=== PATIENT | female | born 1965 | race Caucasian/White ===

== ENCOUNTER 2025-09-03 08:31 | Inpatient (IN) | payer OTHER, SELFPAY ==
--- NOTE | 2025-09-03 08:30 | RT.EKG_ITS ---
APPROVED REPORT Exam: Resting ECG Reason for Exam: SOB/ Fall Patient Location: E HR:72 bpm ECG Measurements Heart Rate 72 AXIS MA 140 P 79 QRSd 72 QRS 76 QT 402 T 69 QTc 441 Conclusion Sinus rhythm...normal P axis, V-rate 60- 99 No Occlusion PA
[2025-09-03 08:37] VITALS: BP 121/77; PULSE 71; RESP 16; O2SAT 95
--- NOTE | 2025-09-03 08:45 | W.ED.GENAD ---
Discharge Plan Disposition Patient Disposition: Admit to [facility] Discharge Details Clinical Impression: Pneumothorax on left Admit Date/Time: 09/03/25 12:23 Admit Provider: Yenifer Guerrero Attending Provider: Yenifer Guerrero Primary Care Provider: None,None ED Provider: Romeo Hampton [facility] General Date/Time Provider Initiated Documentation: 09/03/25 08:45. HPI Narrative: MDM Primary survey intact. Reassuring shock index. On secondary survey patient has left upper thoracic and left lateral back pain concerning for rib fracture versus contusion. Given shortness of breath with slightly decreased left-sided breath sounds we will proceed to CT chest without contrast to assess for occult pneumo and to increase sensitivity for rib fractures. Given minor mechanism of injury and duration of time since injury with reassuring vital signs not suspicious for aortic injury nor significant vascular injury so do not feel the patient required IV contrast for vessel imaging. Soft nontender abdomen with no rebound nor guarding and no nausea nor vomiting but as a result I did not feel patient required an abdominal CT scan. No midline cervical spinal tenderness and good range of motion in neck so we will defer neck CT. No loss of consciousness nor blood thinners based on age less than [address] head. Right forearm with superficial volar ecchymosis. Given ability to pronate and supinate I am not suspicious for any acute osseous abnormalities so we will defer radiographs. [place] Head CT Criteria Major Criteria GCS < 15 : [No] Open or depressed skull Fx: [No] Sign of Basilar Skull Fx: [No] > 2 Episodes Vomiting: [No] Anticoagulation: [No] Age > 65: [No] Minor Criteria Retrograde Amnesia >30min: [No] Dangerous Mechanism: [No] Per [place] head CT rules, CT head not obtained. The patient had a GCS of 15, no open/depressed skull fracture, no signs of basilar skull fracture (hemotympanum, raccoon eyes, yañez's sign, CSF Nakina/Rhinorrhea), no vomiting, and is less than 65 years of age. 4:15 PM Late charting due to patient care. On CT patient was found to have a large closed left pneumothorax with no associated rib fractures. I placed patient on nonrebreather at [address] Guerrero graciously agreed to accept the patient for hospitalization. She placed a left-sided pigtail. I performed procedural sedation. Please see procedure note for details. Patient remained hemodynamically stable in the emergency department. Diagnostic interpretations performed by me: Per my independent interpretation EKG shows: Narrow complex normal sinus rhythm at a rate of 72. Normal axis. Intervals within normal limits. No ST segment abnormalities. T wave inversion in aVL. No prior for comparison. HPI The patient presents for evaluation of a fall. The patient experienced a fall last night, descending 5 to 6 steps on a back stairway in her home. The stairway consists of approximately 8 steps leading up from the kitchen, with a landing in the opposite direction. She was able to get up right away. She did not lose consciousness. She is not on any blood thinners. She did not notice any bleeding. Exam General: Well-appearing in no acute distress speaking in complete sentences. Head: Normocephalic, atraumatic. Eye:[Pupils equal, round reactive to light.] Extraocular eye movements intact. No conjunctival injection. No scleral icterus. Ear, nose, mouth, throat: Grossly normal inspection. Normal voice, handling secretions normally. No hemotympanum bilaterally. Neck: Trachea midline. Cardiovascular: Well-perfused distal extremities. Respiratory: Nonlabored respiration. Gastrointestinal: Nondistended abdomen. Musculoskeletal: No edema. Moving all 4 extremities spontaneously. Skin: Normal for age and race, grossly normal temperature and turgor. No acute rash. Neurologic: Alert and appropriate, no apparent acute deficits. Psychiatric: Mood and manner are appropriate. Grooming and personal hygiene are appropriate. Related Data Home Medications ?Medication ?Instructions ?Recorded ?Confirmed Unknown [No Known Home Meds] 09/03/25 09/03/25 Allergies Allergy/AdvReac Type Severity Reaction Status Date / Time morphine AdvReac Mild Other (See Verified 09/03/25 10:42 Comment) Penicillins AdvReac Unknown Unknown Verified 09/03/25 10:42 General Stated Complaint: Fall/Non TraumaCriteria CHRISTIAN: 3 Course Vital Signs Vital signs: Vital Signs Pulse 71 09/03/25 08:37 Respiratory Rate 16 09/03/25 08:37 Blood Pressure 121/77 09/03/25 08:37 Pulse Oximetry 95 09/03/25 08:37 Pulse 71 09/03/25 08:37 Respiratory Rate 16 09/03/25 08:37 Blood Pressure 121/77 09/03/25 08:37 Pulse Oximetry 95 09/03/25 08:37 Procedure Procedural Sedation Date of Procedure: 09/03/25 Time of procedure: 11:01 Provider that performed the procedure: Romeo Hampton Indication: Procedural optimization Patient Consented: Written Standard Time Out Performed: Yes Sedation Given: Propofol Amount of sedation(mg): 60 Preparation: phototypesetting equipment monitor applied, pulse oximeter, capnometry used, supplemental O2 applied, suction/airway equipment at bedside and IV secured Note: Patient tolerated procedure well. Please see separate procedure note by proceduralist. PFSH All Active Problems (Updated 09/03/25 @ 10:06 by Romeo Hampton MD) Pneumothorax on left (Acute) Social History Smoking/Tobacco Use Status: Current every day Tobacco Type: e-cigarettes Smoking risk assessment performed?: Yes Alcohol Intake: current Alcohol Intake frequency: a few times a month Drug use: Never Housing: house Do you feel safe at home: Yes Do you feel safe in your relationship?: Yes
[2025-09-03 08:48] VITALS: TEMP 36.9
--- NOTE | 2025-09-03 09:00 | DI.CT_ITS ---
Exam(s) CT CHEST WO EXAM: CT CHEST WO CLINICAL HISTORY: Left-sided chest wall pain, shortness of breath. TECHNIQUE: Multi planar reconstructions were performed. CONTRAST MATERIAL: None COMPARISON: No exams were available for comparison FINDINGS: CHEST: LUNGS: There is a E prominent left-sided pneumothorax, approximately 60 percent. No overlying rib fractures evident. No obvious incidental lesions in left lung seen. The opposite-right lung is clear and there is no pneumothorax on the right side. There is some flattening of the left hemidiaphragm. No shift of midline structures. There are no pleural effusions on either side. No significant focal findings in trachea and mainstem bronchi. MEDIASTINUM: There is no obvious hilar nor mediastinal adenopathy. Visualized thyroid unremarkable.No obvious axillary adenopathy OTHER: There are bilateral saline breast implants. CARDIAC: Heart size is normal. There is no pericardial effusion.Caliber of the thoracic aorta is within normal limits. VISUALIZED UPPER ABDOMEN:Gallbladder surgically absent. 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 No ascites. Spleen appears unremarkable. No obvious organ lacerations in the partially visualized upper abdomen. OSSEOUS: No significant osseous lesions.. IMPRESSION: 1. Prominent unilateral left-sided pneumothorax as described above. No pleural fluid. 2. There is some flattening of the left hemidiaphragm. There is no significant shift of midline structures. 3. Bilateral saline appearing breast implants noted. Findings called by myself to ER physician 09/03/2025 at 9:45 a.m. RADIATION DOSE DELIVERED: 145.12mGy.cm Total DLP DATA REPOSITORY: All CT scans at this facility are submitted to the National Radiology Data Registry (NRDR) Dose Index Registry (DIR) with the [employer] (A[employer]). RADIATION OPTIMIZATION: All CT scans at this facility use at least one of these dose optimization techniques: automated exposure control; mA and/or kV adjustment per patient size (includes targeted exams where dose is matched to clinical indication); or iterative reconstruction.
[2025-09-03 10:32] LABS: Abs Immature Grans 0.02 10^3/uL (0.0-0.06); HCT 37.2 % (36.0-46.0); HGB 12.0 g/dL (11.2-15.7); Immature Grans % 0.3 %; MCH 27.5 pg (27.0-33.0); MCHC 32.3 % (32.0-36.0); MCV 85 fL (80-95); MPV 9.7 fL (8.0-11.0); Platelet Count 251 10^3/uL (130-400); RBC 4.36 10^6/uL (3.93-5.22); RDW 13.5 % (11.7-14.6); RDW-SD 42.1 fL; WBC 7.21 10^3/uL (4.4-10.8)
[2025-09-03] MEDS: Ketorolac 15 MG/ML VIAL IVP (10:43)
[2025-09-03] MEDS: ACETAMINOPHEN 500 MG/50 ML BAG 200 MG IVPB (10:43)
[2025-09-03 10:56] LABS: Anion Gap 9 mmol/L (3-11); BUN 11 mg/dL (9-23); CO2 27.0 mmol/L (20.0-31.0); Calcium 8.7 mg/dL (8.3-10.6); Chloride 107 mmol/L (98-107); Glucose 107 mg/dL (74-106); Potassium 4.1 mmol/L (3.5-5.1); Sodium 143 mmol/L (136-145)
[2025-09-03] MEDS: Normal Saline 500 ML IV (11:08)
[2025-09-03] MEDS: Propofol 200 MG/20 ML VIAL 60 MG IVP (11:08)
--- NOTE | 2025-09-03 11:15 | DI.RAD_ITS ---
Exam(s) XR PORTABLE CHEST AP EXAM: XR PORTABLE CHEST AP CLINICAL HISTORY: Status post chest tube. TECHNIQUE: 2D digital imaging was performed. COMPARISON: Chest CT scan earlier same day was reviewed FINDINGS: Single AP portable view. There has been interval placement of a left pigtail thoracotomy catheter and there has been significant re-expansion of the left lung and less flattening of the left hemidiaphragm. There is a tiny remaining apical pneumothorax. No infiltrates on either side. No shift of midline structures. No fractures evident. Heart size normal. The mediastinum is not widened IMPRESSION: Significant re-expansion of the left lung since placement of the pigtail drainage catheter in the left pleural space. DATA REPOSITORY: RADIATION DOSE DELIVERED:
--- NOTE | 2025-09-03 11:34 | RESPIRATORY ---
Paged to ED to assist with conscious sedation. Patient placed on EtCO2 NC at 5L. Pre-sedation vital signs HR 64, RR 16, EtCO2 32, SpO2 100%. Ambu bag, suction, nasal/oral airway at bedside. Airway cart and Glidescope on standby. Pt tolerated procedure well with post-sedation vitals HR 62, RR 12, EtCO2 32, SpO2 100% on RA.
[2025-09-03] MEDS: HYDROmorphone 2 MG/ML SYR 0.25 MG IVP ×2 (11:35→22:01)
[2025-09-03] MEDS: Lidocaine 2% Multi-Dose W/EPI 1/100,000 20 ML VIAL IJ (11:37)
[2025-09-03] MEDS: HYDROmorphone 2 MG/ML SYR 0.5 MG IVP (11:51)
--- NOTE | 2025-09-03 11:54 | NUR.NOTE ---
Nursing Note: necklace placed in coin pocket of wallet per pt
--- NOTE | 2025-09-03 12:34 | HPE_ITS ---
Date of service: 09/03/25 Time of Service: 12:34 Assessment and Plan Assessment and plan (1) Pneumothorax on left: Status: Acute Assessment and plan: Patient is a 60-year-old female who presented to the ED after a fall with ongoing left-sided pain and shortness of breath. On presentation she was afebrile and hemodynamically stable. She underwent further imaging which showed a large left-sided pneumothorax with no associated rib fractures. Given this finding a pigtail chest tube was discussed with her. The risks and benefits of the procedure were also explained and consent was obtained before the procedure. Please see procedure note separately. A 14 [place] pigtail chest tube was placed in the emergency department without difficulty. She tolerated the procedure well and postprocedure chest x-ray showed improvement in the left pneumothorax with a small residual apical pneumothorax. On exam and imaging she has no additional injuries or laboratory abnormalities. Will admit for ongoing chest tube management. Continue chest tube to -20 continuous suction for 24 hours. Regular diet and pain control ordered and will continue to monitor closely. History of Present Illness Narrative: Patient is a 60-year-old female who presents after a fall yesterday evening. She states that yesterday she was wearing thick socks and fell down her farmhouse stairs. She notes that she landed on her left side. She denies loss of consciousness. She denies any other injuries. She notes that she was able to get up on her own and other than mild shortness of breath and left-sided flank pain she felt okay overnight. She states that she did check her oxygen at home which was stable. She does endorse however some chest tightness and ongoing shortness of breath which is why she presented to the emergency department today for evaluation. She denies any associated fevers, chills, nausea, vomiting, abdominal pain, neck pain. She is not currently on any medications at home. She denies any previous history of a pneumothorax or thoracic surgery. She does currently vape and has a history of cigarrette use. Review of Systems Constitutional Constitutional: Denies chills, Denies fatigue and Denies fever(s) Gastrointestinal Gastrointestinal: Denies abdominal pain, Denies nausea and Denies vomiting Genitourinary Genitourinary: Denies dysuria Musculoskeletal Musculoskeletal: Denies arthralgias, Denies muscle weakness and Denies numbness Integumentary/Breasts Skin/Breast: Denies new lesions and Denies rash Neurologic Neurologic: Denies numbness Endocrine Endocrine: Denies fatigue PFSH All Active Problems (Updated 09/03/25 @ 10:06 by Romeo Hampton MD) Pneumothorax on left (Acute) Social History Smoking/Tobacco Use Status: Current every day Tobacco Type: e-cigarettes Smoking risk assessment performed?: Yes Alcohol Intake: current Alcohol Intake frequency: a few times a month Drug use: Never Do you feel safe at home: Yes Do you feel safe in your relationship?: Yes Meds Allergies and Home Medications Allergies Allergy/AdvReac Type Severity Reaction Status Date / Time morphine AdvReac Mild Other (See Verified 09/03/25 10:42 Comment) Penicillins AdvReac Unknown Unknown Verified 09/03/25 10:42 Exam Narrative Exam Narrative: General: no acute distress Skin: Good turgor, no visible rashes or lesion HEENT: Normocephalic, atraumatic, no visible masses, neck supple CV: Regular rate and rhythm Lungs: non-labored breathing Abdomen: Soft, non-distended Extremities: Warm, well perfused Neurologic: No focal deficits Psychiatric: Alert and oriented, normal mood and affect Results Labs 09/03/25 10:19 09/03/25 10:19 Labs: Laboratory Results - last 24 hr 09/03/25 10:19 WBC 7.21 RBC 4.36 Hgb 12.0 Hct 37.2 MCV 85 MCH 27.5 MCHC 32.3 RDW 13.5 Plt Count 251 MPV 9.7 Immature Gran % 0.3 Neutrophils % 67.4 Lymphocytes % 18.7 Monocytes % 10.8 Eosinophils % 2.1 Basophils % 0.7 Nucleated RBC % 0.0 Absolute Neutrophils 4.86 Absolute Lymphocytes 1.35 Absolute Monocytes 0.78 Absolute Eosinophils 0.15 Absolute Basophils 0.05 Sodium 143 Potassium 4.1 Chloride 107 Carbon Dioxide 27.0 Anion Gap 9 BUN 11 Creatinine 0.70 Est GFR (CKD-EPI 2020) 85.52 Glucose 107 H Calcium 8.7 Last Vital Signs Temp 36.9 C 09/03/25 08:48 Pulse 71 09/03/25 08:37 Resp 16 09/03/25 08:37 BP 121/77 09/03/25 08:37 Pulse Ox 95 09/03/25 08:37 Procedures Chest Tube Chest Tube 1: Chest tube location: Mid-Axillary Chest Size of tube: 14 Chest tube procedure: Yes sterile drapes applied and other Tube sutured to skin: Yes Sterile dressing applied: Yes Anesthesia: 1% Lidocaine Volume anesthetic (ml): 5 Incision made with: #11 blade Post procedure: sutured to skin and sterile dressing applied Tube Drainage: air Amount of initial drainage (ml): 0 Post procedure CXR?: Yes Patient tolerated procedure: Yes Progress: 14 [place] pigtail catheter placed left midaxillary. Patient tolerated well. Post-procedure chest xray with small residual apical pneumothorax. VTE Prohylaxis Risk Level: Low Risk Contraindications: None Prophylaxis: Pharmacologic and Patient ambulatory PAWSS Have you Been Recently Intoxicated or Drunk Within the Last 30 days?: No Have you Ever Experienced Previous Episodes of Alcohol Withdrawal?: No Have you ever Experienced Withdrawal Seizures?: No Have you ever Experienced Delirium Tremens(DT)s?: No Have you ever undergone Alcohol Rehabilitation Treatment (i.e, inpt ot outpatient treatment programs)?: No Have you ever Experienced Blackouts?: No Have you ever Combined Alcohol with other Downers within the last 90 days?: No Have you ever Combined Alcohol with any other Substance of Abuse during the last 90 days?: No Result: 0 Time Spent Time spent with Patient: 55-74 minutes Time was spent: preparing to see the patient(eg.review tests), obtaining and/or reviewing separately otained hiistory, ordering medications,tests, procedures, indepentently interpreting results and counseling the patient
[2025-09-03] MEDS: Lidocaine 5% Patch 1 PATCH (13:00)
--- NOTE | 2025-09-03 13:23 | W.PC.ACHO ---
Registration Status: REG ER Primary Language: Preferred Language: ED Information & Data Chief Complaint Fall/Non TraumaCriteria 09/03/25 09:07 Chief Complaint Fall/Non TraumaCriteria 09/03/25 08:46 Other Complaint Chest Pain 09/03/25 08:37 Triage Note Pt fell down 5-6 steps last 09/03/25 08:37 night. Complaining of chest and back pain. Diff taking in a breath Most Recent Vital Signs Temperature 36.9 C 09/03/25 08:48 Pulse 71 09/03/25 08:37 Respiratory Rate 16 09/03/25 08:37 Blood Pressure 121/77 09/03/25 08:37 Pulse Oximetry 95 09/03/25 08:37 Pain Level 8 09/03/25 11:51 Allergies morphine Adverse Reaction (Mild, Verified 09/03/25 10:42) Other (See Comment) Nausea Penicillins Adverse Reaction (Unknown, Verified 09/03/25 10:42) Unknown childhood Precautions Isolation Standard precaution 09/03/25 09:07 IV IV Catheter Type [Left Saline Lock Antecubital] IV Catheter Gauge [Left 18 Antecubital] Diet Orders Category Date Time Status Regular/Normal [DIET] Nutrition 09/03/25 Lunch Active Diagnostics 09/03/25 Range/Units 10:19 WBC 7.21 (4.4-10.8) 10^3/uL RBC 4.36 (3.93-5.22) 10^6/uL Hgb 12.0 (11.2-15.7) g/dL Hct 37.2 (36.0-46.0) % MCV 85 (80-95) fL MCH 27.5 (27.0-33.0) pg MCHC 32.3 (32.0-36.0) % RDW 13.5 (11.7-14.6) % Plt Count 251 (130-400) 10^3/uL MPV 9.7 (8.0-11.0) fL Immature Gran % 0.3 % Neutrophils % 67.4 % Lymphocytes % 18.7 % Monocytes % 10.8 % Eosinophils % 2.1 % Basophils % 0.7 % Nucleated RBC % 0.0 (0.0-0.3) % Absolute Neutrophils 4.86 (1.2-6.7) 10^3/uL Absolute Lymphocytes 1.35 (1.2-3.4) 10^3/uL Absolute Monocytes 0.78 (0.1-0.8) 10^3/uL Absolute Eosinophils 0.15 (0.0-0.7) 10^3/uL Absolute Basophils 0.05 (0.0-0.2) 10^3/uL Sodium 143 (136-145) mmol/L Potassium 4.1 (3.5-5.1) mmol/L Chloride 107 (98-107) mmol/L Carbon Dioxide 27.0 (20.0-31.0) mmol/L Anion Gap 9 (3-11) mmol/L BUN 11 (9-23) mg/dL Creatinine 0.70 (0.55-1.02) mg/dL Est GFR (CKD-EPI 2020) 85.52 (mL/min/1.73m2) Glucose 107 H (74-106) mg/dL Calcium 8.7 (8.3-10.6) mg/dL Intake and Output - 24 Hour Total 09/03/25 08:31 thru 09/03/25 08:37 Weight 57.153 kg Falls Risk Assessment History of Falls Admit Due to Fall 09/03/25 09:07 Fall Total Score 25 09/03/25 09:07 Level of Risk Moderate Risk 09/03/25 09:07 Problems Pneumothorax on left (Acute) Notes 09/03/25 11:54 Nursing Notes by Tara García Nursing Note: necklace placed in coin pocket of wallet per pt Initialized on 09/03/25 11:54 - END OF NOTE 09/03/25 11:34 Respiratory by Brianna Chandra Paged to ED to assist with conscious sedation. Patient placed on EtCO2 NC at 5L. Pre-sedation vital signs HR 64, RR 16, EtCO2 32, SpO2 100%. Ambu bag, suction, nasal/oral airway at bedside. Airway cart and Glidescope on standby. Pt tolerated procedure well with post-sedation vitals HR 62, RR 12, EtCO2 32, SpO2 100% on RA. Initialized on 09/03/25 11:34 - END OF NOTE Attestation Statement: By documenting the first initial, last name, and credentials of the reporting nurse below, both parties acknowledge that all relevant information regarding the patient handoff has been communicated, and that all questions have been addressed to ensure continuity and safety of care. Additional Patient Information/Comments: Paged at [phone] and report called at [phone]. Pt has chest tube in place, no output at this time, confirmed placement via chest x-ray. Report Received From: Tara Pollack, ED RN
[2025-09-03 13:30] VITALS: BP 158/86; PULSE 55; RESP 15; TEMP 37.2; O2SAT 100
[2025-09-03] MEDS: Acetaminophen 500 MG TAB 1000 MG PO ×2 (14:26→20:36)
[2025-09-03] MEDS: HYDROmorphone 2 MG TAB PO ×2 (15:41→20:35)
[2025-09-03] MEDS: Methocarbamol 750 MG TAB PO ×2 (15:41→22:02)
--- NOTE | 2025-09-03 16:11 | NUR.NOTE ---
Nursing Note: @1100 timeout for chest tube placement. Surgeon, Dr Antunez, RT, 2 nursing students and this RN present for procedure. 1104 60mg propofol administered by Dr Antunez, 1108 procedure start. Surgeon placed chest tube with no difficulty. PT talking during procedure she said she did not feel bad during. 1113 procedure done. pt talking said that was not as bad as I thought
[2025-09-03 19:34] VITALS: BP 134/75; PULSE 57; RESP 18; TEMP 37.1; O2SAT 99
[2025-09-03] MEDS: Normal Saline Flush 10 ML SYR IVP ×2 (20:36→22:01)
[2025-09-04 04:23] VITALS: BP 124/70; PULSE 55; RESP 18; TEMP 36.4; O2SAT 99
[2025-09-04] MEDS: Methocarbamol 750 MG TAB PO ×4 (04:33→20:16)
[2025-09-04] MEDS: Acetaminophen 500 MG TAB 1000 MG PO (04:33)
[2025-09-04] MEDS: HYDROmorphone 2 MG TAB PO ×4 (04:33→22:42)
--- NOTE | 2025-09-04 06:00 | DI.RAD_ITS ---
Exam(s) XR PORTABLE CHEST AP EXAM: XR PORTABLE CHEST AP CLINICAL HISTORY: evaluate left pneumothorax TECHNIQUE: 2D digital imaging was performed of the chest. One image was obtained. An AP view was obtained. COMPARISON: CT CT CHEST WO from 09/03/2025 CR XR PORTABLE CHEST AP from 09/03/2025 FINDINGS: The left chest tube is again seen in the left apex. MEDIASTINUM: Normal. HEART: Normal. PULMONARY VASCULATURE: Normal. LUNGS: There is linear atelectasis in the left mid lung. There are no focal consolidating infiltrates. PLEURAL SPACE: There does appear to be a small residual left apical pneumothorax with the pleural border overlying the left 3rd rib. BONE:Within normal limits for the patient's age. OTHER FINDINGS:There is elevation of the right hemidiaphragm. IMPRESSION: 1. Linear atelectasis in the left mid lung. 2. Question of a tiny residual left apical pneumothorax. Inspiratory and expiratory views may be obtained for better characterization. DATA REPOSITORY: RADIATION DOSE DELIVERED:
[2025-09-04 06:43] VITALS: BP 114/70; PULSE 53; RESP 16; TEMP 36.7; O2SAT 98
--- NOTE | 2025-09-04 07:22 | DI.VRAD_ITS ---
PROCEDURE INFORMATION: Exam: XR Chest Exam date and time: 09/04/2025 5:59 AM Age: 60 years old Clinical indication: Other: Evaluate left pneumothorax TECHNIQUE: Imaging protocol: Radiologic exam of the chest. Views: 1 view. COMPARISON: CR XR PORTABLE CHEST AP 09/03/2025 11:31 AM FINDINGS: Tubes, catheters and devices: Left pigtail pleural drain in place. Lungs: New linear opacity left mid lung zone, consistent with subsegmental atelectasis and/or scar. Pleural spaces: New hazy opacities in the lower thorax bilaterally, concerning for a posteriorly layering pleural effusions. No pneumothorax. Heart/Mediastinum: Unremarkable. No cardiomegaly. Diaphragm: Mildly elevated right hemidiaphragm. Bones/joints: Unremarkable. IMPRESSION: New hazy opacity in the lower thorax bilaterally, concerning for a posteriorly layering pleural effusions. Dictated and Authenticated by: Jimena Ta MD. Orderin Cesar Street MD
--- NOTE | 2025-09-04 08:18 | W.PM.PROGNOT ---
Date of Service Date of service: 09/04/25 Time of Service: 08:18 Assessment and Plan Assessment and plan (1) Pneumothorax on left: Status: Acute Assessment and plan: Karly is having some increased muscular soreness most likely secondary to her fall. She states the pain medications and muscle relaxants have helped tremendously in her discomfort. She is tolerating the chest tube well, which is currently on suction. Will transition to water seal around noon and continue to monitor her closely. Encouraged her continue use of the incentive spirometer. Will continue with pain management and close monitoring. Reviewed Jen Goss's note, agree with it including assessment and plan. Placed tube to waterseal at noon. She feels well, feels the same, no dyspnea, no neck pressure/pulsations like she had before she came in. Plan CXR in AM, or sooner if symptoms such as dyspnea, hypoxia or palpitations occur. Likely pull tube and send home tomorrow. She helps her neighbor get to appointments and he has one at 230pm in ortho clinic here tomorrow. She hopes to get him to that appointment. I told her I wasnt sure it was feasible to have him there by then, and it would be important to call to try getting that rescheduled for him. We will do our best but challenging to have her out of hospital then back to campus in time for his appointment. Subjective Subjective Interval history since last seen: Karly describes she is very sore today around the chest tube and wrapping around her back. She states she is feeling better in her ability to breath compared to yesterday. Exam Const General: cooperative, healthy appearing and comfortable Orientation: alert and oriented x3 Resp Effort & Inspection: normal respiratory effort, no audible wheezes and no cough Other: Chest tube in place. No air leak noted. Currently on suction. Objective Last Vital Signs Temp 36.7 C 09/04/25 06:43 Pulse 53 L 09/04/25 06:43 Resp 16 09/04/25 06:43 BP 114/70 09/04/25 06:43 Pulse Ox 98 09/04/25 06:43 Laboratory Results - last 24 hr 09/03/25 10:19 WBC 7.21 RBC 4.36 Hgb 12.0 Hct 37.2 MCV 85 MCH 27.5 MCHC 32.3 RDW 13.5 Plt Count 251 MPV 9.7 Immature Gran % 0.3 Neutrophils % 67.4 Lymphocytes % 18.7 Monocytes % 10.8 Eosinophils % 2.1 Basophils % 0.7 Nucleated RBC % 0.0 Absolute Neutrophils 4.86 Absolute Lymphocytes 1.35 Absolute Monocytes 0.78 Absolute Eosinophils 0.15 Absolute Basophils 0.05 Sodium 143 Potassium 4.1 Chloride 107 Carbon Dioxide 27.0 Anion Gap 9 BUN 11 Creatinine 0.70 Est GFR (CKD-EPI 2020) 85.52 Glucose 107 H Calcium 8.7 PAWSS Have you Been Recently Intoxicated or Drunk Within the Last 30 days?: No Have you Ever Experienced Previous Episodes of Alcohol Withdrawal?: No Have you ever Experienced Withdrawal Seizures?: No Have you ever Experienced Delirium Tremens(DT)s?: No Have you ever undergone Alcohol Rehabilitation Treatment (i.e, inpt ot outpatient treatment programs)?: No Have you ever Experienced Blackouts?: No Have you ever Combined Alcohol with other Downers within the last 90 days?: No Have you ever Combined Alcohol with any other Substance of Abuse during the last 90 days?: No Positive Blood Alcohol level on Presentation? [PCS.BAL]: No Evidence of Increased Autonomic Activity (i.e. HR>120, tremor, sweating, agitation, nausea)?: No Result: 0 VTE Prohylaxis Risk Level: Moderate/High Risk Contraindications: None Prophylaxis: Patient ambulatory Time Spent with Patient Time Spent with Patient: <25 minutes Time was spent: preparing to see the patient(eg.review tests), obtaining and/or reviewing separately otained hiistory and counseling the patient
[2025-09-04] MEDS: Normal Saline Flush 10 ML SYR IVP ×2 (08:58→20:16)
--- NOTE | 2025-09-04 09:04 | PDOC.CMIN ---
Date of service: 09/04/25 Time of Service: 09:04 Care Management Initial Assmt Initial Assessment Reason for Hospitalization: pneumothorax Functional Status/Living Situation Patient Presentation: Karly was sitting up in bed chatting on the phone when CM met with her. She was smiling and easily engaged with CM whom she knew from a previous encounter. Karly was admitted with a pneumothorax. She explained that this resulted from a fall at home. She had recently refinished her stairs and there was no carpet on them. While wearing only socks, she descended the stairs quickly and her feet went out from under her. She sustained a large (60%) pneumothorax requiring a chest tube. Imaging today showed good improvement but there may be some layering pleural effusions. She continues to have pain but it is now controlled with oral analgesics. If tomorrow's imaging shows full lung expansion, she reported that she may be able to have the chest removed and discharge home. Karly relocated from [place] a little over a year ago. 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 Karly is however her Jeanmarie is still in [place] trying to sell their home. They also have a lease/purchase home in [place]. Between them, the couple has 7 children. Five live in [place], one is in [place] and one is in [place]. Karly is [facility] at baseline and does not receive any community services. Town of Residence: [place] Resides with: Alone Significant Other/Family: Out of area Natural Supports: friends and family Employment Status: Employed Instrumental Activities of Daily Living (ADLs): Independent Medications Medication Management: No Issues/Barriers identified Physical Functioning/Mobility Assistive Device: none Advance Directives Advance Directives: Do you have an Advance Directive: N Today, 07:44 AD On File at [facility]: N Today, 07:44 Date Asked 09/03/25 09/03/25, 09:13 AD Date Reviewed COLST On File at [facility] COLST Date Scanned Code Status Resuscitation Status Full Code Portal Pt does not currently have a portal and education provided: Yes Insurance Coverage/Financial Issues Insurance: [employer] Care Team Visit Care Team Role Provider Type None None Primary Care Provider [facility] STAFF PHYSICIAN Romeo Hampton MD Emergency Provider [facility] STAFF PHYSICIAN Yenifer Guerrero MD Admit Provider [facility] STAFF PHYSICIAN Attending Provider Discharge Potential Discharge Needs: PCP F/U Appt and Surgical F/U Appt Anticipated Barriers to Discharge: None Identified Patient/Family Education Needs: Review discharge instructions, discuss Ask Me Three Transportation: Private vehicle Plan: Anticipate Karly will be discharged home with no new services when medically stable. She will follow up with her PCP, surgeon and plan of care and transport with family. CM will follow and continue to assess for discharge needs. Social Determinants of Health Screening Social Determinants of health last assessed in clinic: 09/04/25 Will the Patient Participate in the Screening?: Yes Do you worry about having a steady place to live?: no Problems where you live: no known problems In the past 12 months, have you had to go without electric, gas, oil or water in your home?: no 1. Within the past 12 months, we worried whether our food would run out before we got money to buy more.: Never true 2. Within the past 12 months, the food we bought just didn't last and we didn't have money to get more.: Never true Has lack of transportation kept you from medical appointments or from doing things needed for daily living?: no Has anyone in your life made you feel unsafe or unsupported?: no How hard is it for you to pay for the very basics like food, housing, medical care, and heating? Would you say it is:: Not hard at all Do you want help finding or keeping work or a job?: I do not need or want help If for any reason you need help with day-to-day activities such as bathing, preparing meals, shopping, managing finances, etc., do you get the help you need?: I don?t need any help How often do you feel lonely or isolated from those around you?: Never Do you speak a language other than Tristanian at home?: No Does the patient want assistance with any of the above?: No PFSH All Active Problems (Updated 09/03/25 @ 10:06 by Romeo Hampton MD) Pneumothorax on left (Acute) Social History Smoking/Tobacco Use Status: Current every day Tobacco Type: e-cigarettes Smoking risk assessment performed?: Yes Alcohol Intake: current Alcohol Intake frequency: a few times a month Drug use: Never Housing: house Do you feel safe at home: Yes Do you feel safe in your relationship?: Yes
[2025-09-04] MEDS: Ibuprofen 800 MG TAB PO ×2 (14:25→22:41)
--- NOTE | 2025-09-04 15:45 | CHAPLAIN ---
Adrienne was sitting up in bed when I visited. She's from [place] and recently purchased a home in [place]. Her is still in [place] working on selling their home there. Adrienne took a job in [place] and said she has like living here. She fell down some stairs in their home and thought she was just bruised. Her suggested she come to the ED and it turned out she has a pneumothorax. Adrienne grew up as a [employer], but didn't find any Pentecostal Meetings near where she lived in [place].
[2025-09-04 15:52] VITALS: BP 163/92; PULSE 61; RESP 19; TEMP 36.9; O2SAT 99
[2025-09-04 19:15] VITALS: BP 144/79; PULSE 62; RESP 16; TEMP 36.8; O2SAT 98
[2025-09-04] MEDS: Polyethylene Glycol 3350 17 GM PACKET PO (22:41)
[2025-09-05 06:00] VITALS: RESP 16; O2SAT 98
--- NOTE | 2025-09-05 06:17 | DI.RAD_ITS ---
Exam(s) XR PORTABLE CHEST AP EXAM: XR PORTABLE CHEST AP CLINICAL HISTORY: chest tube evaluate left pneumothorax. TECHNIQUE: 2D digital imaging was performed. COMPARISON: No exams were available for comparison FINDINGS: Single AP portable view. Left chest tube pigtail catheter is again noted unchanged in position. The size of the small remaining left apical pneumothorax is approximately 5 percent. Scarring or platelike atelectasis is again noted in the mid left lung zone. IMPRESSION: Small approximately 5 percent remaining left apical pneumothorax. DATA REPOSITORY: RADIATION DOSE DELIVERED:
[2025-09-05] MEDS: Ibuprofen 800 MG TAB PO (06:25)
[2025-09-05] MEDS: Acetaminophen 500 MG TAB 1000 MG PO (06:25)
--- NOTE | 2025-09-05 06:30 | DI.VRAD_ITS ---
PROCEDURE INFORMATION: Exam: XR Chest Exam date and time: 09/05/2025 6:08 AM Age: 60 years old Clinical indication: Device placement; Chest tube/evaluate left pneumothorax TECHNIQUE: Imaging protocol: Radiologic exam of the chest. Views: 1 view. COMPARISON: CR XR PORTABLE CHEST AP 09/04/2025 5:59 AM FINDINGS: Tubes, catheters and devices: Left pleural catheter is coiled in the apex. Lungs: Linear atelectasis in the left mid to lower lung zone. Pleural spaces: No pneumothorax seen. No pleural effusion. Heart/Mediastinum: Unremarkable. No cardiomegaly. Bones/joints: Unremarkable. Intraperitoneal space: Surgical clips in the right upper quadrant. IMPRESSION: Stable exam. Dictated and Authenticated by: Indiana Concepcion MD. Orderin Juan Chance MD
--- NOTE | 2025-09-05 07:45 | W.PM.PROGNOT ---
Date of Service Date of service: 09/05/25 Time of Service: 07:45 Assessment and Plan Assessment and plan (1) Pneumothorax on left: Status: Acute Assessment and plan: I reviewed her chest x-ray from this morning, as well as the interpretation. I see no clinically significant signs of pneumothorax. Using standard technique, I removed the pigtail pleural catheter under positive expiratory force. She tolerated this well, and the access site was dressed with an occlusive dressing. Will repeat a chest x-ray in 3 hours. Assuming there is no clinically significant pneumothorax at time, anticipate discharge home this afternoon. Subjective Subjective Interval history since last seen: Adrienne has some expected musculoskeletal, but otherwise is doing quite well. She does not bleeding. She denies shortness of. Exam Resp Other: There is good variation of the tube, no evidence of any air leak Objective Last Vital Signs Temp 98.2 F 09/04/25 19:15 Pulse 62 09/04/25 19:15 Resp 16 09/05/25 06:00 BP 144/79 H 09/04/25 19:15 Pulse Ox 98 09/05/25 06:00 PAWSS Have you Been Recently Intoxicated or Drunk Within the Last 30 days?: No Have you Ever Experienced Previous Episodes of Alcohol Withdrawal?: No Have you ever Experienced Withdrawal Seizures?: No Have you ever Experienced Delirium Tremens(DT)s?: No Have you ever undergone Alcohol Rehabilitation Treatment (i.e, inpt ot outpatient treatment programs)?: No Have you ever Experienced Blackouts?: No Have you ever Combined Alcohol with other Downers within the last 90 days?: No Have you ever Combined Alcohol with any other Substance of Abuse during the last 90 days?: No Positive Blood Alcohol level on Presentation? [PCS.BAL]: No Evidence of Increased Autonomic Activity (i.e. HR>120, tremor, sweating, agitation, nausea)?: No Result: 0 VTE Prohylaxis Risk Level: Moderate/High Risk Contraindications: None Prophylaxis: Patient ambulatory Time Spent with Patient Time Spent with Patient: 25-34 minutes Time was spent: preparing to see the patient(eg.review tests), indepentently interpreting results and counseling the patient
[2025-09-05] MEDS: Methocarbamol 750 MG TAB PO (08:31)
[2025-09-05] MEDS: Polyethylene Glycol 3350 17 GM PACKET PO (08:31)
[2025-09-05] MEDS: Normal Saline Flush 10 ML SYR IVP (08:32)
[2025-09-05 08:44] VITALS: BP 132/73; PULSE 68; RESP 16; TEMP 36.8; O2SAT 98
--- NOTE | 2025-09-05 09:14 | PDOC.CMDIS ---
Date of service: 09/05/25 Time of Service: 09:14 LACE Index Scoring Tool Questions: Length of Stay (in days): 2 Was the patient admitted via the E.D.?: Yes E.D. Visits: 1 Answers: Total Score: 6 Risk of Readmission: Low Risk Care Management Discharge Plan Reason for Hospitalization: pneumothorax Discharge Plan: Karly will be discharged home with no new services. She will follow up with her surgeon and plan of care and transport with a friend. Efforts were made to connect Karly with a community provider for follow up but she declined, preferring to make her own arrangements, likely in [place]. Patient/Family Education Needs: Review discharge instructions, limitations, follow up plan and discuss Ask Me Three
--- NOTE | 2025-09-05 10:30 | DI.RAD_ITS ---
Exam(s) XR CHEST 2V PA LATERAL EXAM: XR CHEST 2V PA LATERAL CLINICAL HISTORY: r/o pneumothorax after drian removal. TECHNIQUE: 2D digital imaging was performed. COMPARISON: CR,XR XR PORTABLE CHEST AP from 09/05/2025 FINDINGS: 2 views: The left chest tube is been removed. The size of the left apical pneumothorax remains approximately 5 percent. It has not increased in size from earlier today prior to removal of the chest tube. Lungs are clear. No infiltrates nor pleural effusions. IMPRESSION: Remaining less than 5 percent apical pneumothorax on the left side, post removal of left chest tube. DATA REPOSITORY: RADIATION DOSE DELIVERED:
--- NOTE | 2025-09-05 10:40 | W.PM.DS.N ---
Date of service: 09/05/25 Time of Service: 10:40 DS: Diagnosis Discharge Diagnosis (1) Pneumothorax on left: Status: Acute Discharge Plan Disposition Patient Disposition: Home Condition: Good Discharge Details Reason For Visit: Left Pneumothorax Admit Date/Time: 09/03/25 12:23 Admit Provider: Yenifer Guerrero Attending Provider: Yenifer Guerrero Primary Care Provider: None,None Hospital Course Hospital Course: Adrienne is a 60-year-old woman who had a standing fall, striking the left chest and back. She came to the emergency department complaining of pain, and some dyspnea. She was found to have a large left-sided pneumothorax. This was treated with a percutaneous thoracostomy tube. She transition from suction to under waterseal, and had a follow-up chest x-ray that showed no clinically significant pneumothorax. The chest tube was removed. Follow-up chest x-ray was also reassuring. She was discharged home with outpatient follow-up. Home Meds and New Rx's Prescriptions: No Action metaxalone 800 mg tablet 800 mg PO TID Qty: 15 0RF Rx Instructions: Take 1 tablet by mouth up to every 8 hours if needed for muscle spasm Discharge Instructions Instructions: Chest Tubes, Pneumothorax (collapsed lung) - Discharge instructions Additional Instructions: Adrienne, it was very nice meeting you today, and I hope you have a quick and uneventful recovery as you transition home. The chest x-ray after removal of your chest tube looks very good. I have taken the liberty of setting up an appointment in our office across the street from the hospital for a routine follow-up visit. I would like you to obtain a chest x-ray prior to your appointment. I have placed that order as well, and I would expect a phone call from the radiology department in the next day or so to make those arrangements. As you transition home, you should be up and moving around a little bit more more each day. As we discussed before your discharge, I suspect your biggest limitations will regard pain from the contusions after the fall. Otherwise, I do not think you need any specific restrictions prior to your follow-up visit. Obviously, you should be thoughtful about any major respiratory symptoms that you notice. In particular, shortness of breath, or worsening pain associated with breathing. I would expect this to be similar to the sensations that you have experienced before going to the emergency department. To be clear, I do not expect that to happen. If you do develop those symptoms, please call our office at [phone]. If it is after regular business hours, you can call the main hospital and have them page the surgeon on-call. You can always certainly come back to the emergency department at any point as well. Stand Alone Forms: Portal Information Referrals: Meron Martinez MD [ [facility] STAFF PHYSICIAN, Surgery] - 09/13/25 8:00 am Activity:: Activity as Tolerated Equipment/Supplies:: No Equipment Needed Diet:: As Tolerated Discharge Orders Discharge Orders: Discharge Order (Routine); Ordered 09/05/25 Ordered By: Giuseppe Nelson Other Ambulatory Orders: XR chest 2V PA & lateral (Routine) Timeframe: 1 Week Facility: [facility] - Location: DIAGNOSTIC IMAGING Ordered By: Giuseppe Nelson DS: Summary Time Spent with Patient providing and/or coordinating discharge services: Less than 30 minutes Status at Discharge Functional status at discharge: independent ambulation Overall status at discharge: patient is progressing back to baseline Mental Status: mental status grossly normal Speech and Movement: speech and movement normal Mood: congruent mood Affect: normal affect Exam Psych Mental Status: mental status grossly normal Speech and Movement: speech and movement normal Mood: congruent mood Affect: normal affect DS: Data Vitals/I&O Vitals and I&O: Vital Signs Temperature 98.2 F 09/05/25 08:44 Temperature Source Temporal Artery Scan 09/05/25 08:44 Pulse 68 09/05/25 08:44 Pulse Rhythm Regular 09/03/25 13:30 Respiratory Rate 16 09/05/25 08:44 Respiratory Effort Normal, Non-Labored 09/03/25 13:30 Respiratory Depth Shallow 09/03/25 13:30 Respiratory Pattern Normal 09/03/25 13:30 Blood Pressure 132/73 09/05/25 08:44 Blood Pressure Mean 92 09/05/25 08:44 Pulse Oximetry 98 09/05/25 08:44 Oxygen Delivery Method Room Air 09/05/25 10:08 Oxygen Flow Rate 0 09/05/25 10:08 Pain Level 8 09/04/25 22:42 Intake & Output 09/04/25 09/04/25 09/05/25 11:59 23:59 11:59 Intake Total 240 / 1460 1220 / 1460 300 / 300 Output Total 175 / 175 0 / 0 Balance 65 / 1285 1220 / 1285 300 / 300 Intake: IV 10 10 Oral 240 / 1460 1220 / 1460 290 / 290 Output: Chest Tube Drainage 0 / 0 0 / 0 Urine 175 / 175 Data Completed and Pending Pending Labs at Discharge: 09/03/25 10:19 WBC 7.21 RBC 4.36 Hgb 12.0 Hct 37.2 MCV 85 MCH 27.5 MCHC 32.3 RDW 13.5 Plt Count 251 MPV 9.7 Immature Gran % 0.3 Neutrophils % 67.4 Lymphocytes % 18.7 Monocytes % 10.8 Eosinophils % 2.1 Basophils % 0.7 Nucleated RBC % 0.0 Absolute Neutrophils 4.86 Absolute Lymphocytes 1.35 Absolute Monocytes 0.78 Absolute Eosinophils 0.15 Absolute Basophils 0.05 Sodium 143 Potassium 4.1 Chloride 107 Carbon Dioxide 27.0 Anion Gap 9 BUN 11 Creatinine 0.70 Est GFR (CKD-EPI 2020) 85.52 Glucose 107 H Calcium 8.7 PFSH All Active Problems (Updated 09/03/25 @ 10:06 by Romeo Hampton MD) Pneumothorax on left (Acute) Social History Smoking/Tobacco Use Status: Current every day Tobacco Type: e-cigarettes Smoking risk assessment performed?: Yes Alcohol Intake: current Alcohol Intake frequency: a few times a month Drug use: Never Housing: house Do you feel safe at home: Yes Do you feel safe in your relationship?: Yes Time Spent with Patient Time Spent with Patient: <45 minutes Time was spent: ordering medications,tests, procedures, counseling the patient and care coordination
[2025-09-05] MEDS: Milk of Magnesia 30 ML CUP PO (11:02)
== END 2025-09-05 13:55 | disposition home or self-care (01) | DRG 201 ==
LOC: ER 13:32 → MS 23:35
PROVIDERS: Admitting Provider Student in an Organized Health Care Education/Training Program; Emergency Provider Emergency Medicine; Responsible Provider Student in an Organized Health Care Education/Training Program; Visit Provider Student in an Organized Health Care Education/Training Program
DX: S27.0XXA Traumatic pneumothorax, initial encounter (principal); W10.9XXA Fall (on) (from) unspecified stairs and steps, initial encounter; F17.290 Nicotine dependence, other tobacco product, uncomplicated
CPT/HCPCS: 32556; 71250; 80048; 93005; 96365; 96366; 96375; 99285; 71045; 71046; 85025; 93010; J0131; J1171; J1885; J2004; J2704

== ENCOUNTER → 2025-09-06 15:02 | Outpatient (CLI) | payer OTHER, SELFPAY ==
--- NOTE | 2025-09-06 14:50 | DI.RAD_ITS ---
Exam(s) XR CHEST 2V PA LATERAL EXAM: XR CHEST 2V PA LATERAL CLINICAL HISTORY: J93.9 Pneumothorax, r/o PTX. TECHNIQUE: 2D digital imaging was performed. COMPARISON: Recent chest x-rays, most recent being 09/05/2025. FINDINGS: 2 views: Heart size is normal. The mediastinum is not widened. The size of the small remaining left apical pneumothorax has not increased since removal of the chest tube. It remains less than 5 percent. There are no infiltrates nor pleural effusions. IMPRESSION: Stable less than 5 percent left apical pneumothorax. No new pulmonary findings. Result called by myself to requesting surgeon. DATA REPOSITORY: RADIATION DOSE DELIVERED:
== END ==
LOC: DI 15:02
PROVIDERS: Visit Provider Surgery
DX: J93.9 Pneumothorax, unspecified (principal)
CPT/HCPCS: 71046

== ENCOUNTER → 2025-09-12 01:06 | Outpatient (CLI) | payer OTHER, SELFPAY ==
--- NOTE | 2025-09-12 08:00 | DI.RAD_ITS ---
Exam(s) XR CHEST 2V PA LATERAL EXAM: XR CHEST 2V PA LATERAL CLINICAL HISTORY: Follow-up pneumothorax,J93.9. TECHNIQUE: 2D digital imaging was performed. COMPARISON: Multiple recent chest x-rays were reviewed. FINDINGS: 2 views: This patient had recent left chest tube for left pneumothorax. Heart size is normal. The mediastinum is not widened. There has been no recurrence of the recently present left-sided pneumothorax. The left lung appears re-expanded. There are no infiltrates nor pleural effusions. Bilateral breast implants again noted. IMPRESSION: No acute pulmonary findings.No infiltrates nor pleural effusions. No pneumothorax. DATA REPOSITORY: RADIATION DOSE DELIVERED:
== END ==
LOC: DI 01:06
PROVIDERS: Visit Provider Surgery
DX: J93.9 Pneumothorax, unspecified (principal)
CPT/HCPCS: 71046

== ENCOUNTER → 2025-09-13 09:02 | Outpatient (CLI) | payer OTHER, SELFPAY ==
--- NOTE | 2025-09-13 09:00 | DI.RAD_ITS ---
Exam(s) XR SCAPULA LT EXAM: XR SCAPULA LT CLINICAL HISTORY: fall, pain in scapula, L side, FALL ON STAIRS/STEPS, W10.8XXS, M89.8X1. TECHNIQUE: 2D digital imaging was performed. COMPARISON: No exams were available for comparison FINDINGS: BONES: No acute fracture is present. No bony destructive lesion is seen. JOINTS: No dislocation present. SOFT TISSUE: Normal. IMPRESSION: Unremarkable radiographs of the left scapula. DATA REPOSITORY: RADIATION DOSE DELIVERED:
== END ==
LOC: DI 09:02
PROVIDERS: Visit Provider Surgery
DX: W10.8XXS Fall (on) (from) other stairs and steps, sequela (principal); M89.8X1 Other specified disorders of bone, shoulder; R06.00 Dyspnea, unspecified
CPT/HCPCS: 73010